=== PATIENT | male | born 1975 | race African-American/Black ===

== ENCOUNTER 2017-03-17 00:23 | Emergency (ER) | payer SELFPAY ==
[~2017-03-17] VITALS: Ht 170.2 cm; Wt 80.0 kg
[2017-03-17 00:26] VITALS: BP 127/79
[2017-03-17] MEDS ORDERED: ALBU8.5H8 INH (00:35)
[2017-03-17] MEDS ORDERED: DEXAMETHASONE 4 MG/ML, 1ML PO ONE (01:00)
[2017-03-17] MEDS ORDERED: DEXAMETHASONE 4 MG/ML, 5ML ONE (01:25)
== END 2017-03-17 02:05 | disposition home or self-care (01) ==
LOC: ED 00:59
DX: M54.12 Radiculopathy, cervical region (principal); J45.909 Unspecified asthma, uncomplicated; F17.200 Nicotine dependence, unspecified, uncomplicated
CPT/HCPCS: 93005; 99283; J1100